=== PATIENT | male | born 1960 ===

== ENCOUNTER → 2019-08-31 | Outpatient (CLI) | payer BC ==
[~2019-08-31] MED LIST: CHOLESTEROL PO; LOSARTAN POTAS100 MG PO; METFORMIN HCL500 MG PO
== END ==
LOC: RAD 05:00 → EDSTATUS 09-05 15:30
PROVIDERS: ATTEND Ophthalmology
DX: Z01.818 Encounter for other preprocedural examination (principal); H25.11 Age-related nuclear cataract, right eye; Z53.8 Procedure and treatment not carried out for other reasons
CPT/HCPCS: 93005